=== PATIENT | male | born 1965 | race Hispanic/Latino ===

== ENCOUNTER 2022-08-10 19:12 | Emergency (ER) | payer SELFPAY ==
[~2022-08-10] VITALS: Ht 157.5 cm; Wt 66.0 kg
[2022-08-10] MEDS ORDERED: VOLTAREN75 MG PO (20:11)
[2022-08-10] MEDS ORDERED: TYLENOL # 31 TA1 PO (20:11)
[2022-08-10 20:50] VITALS: BP 129/84
== END 2022-08-10 21:00 | disposition home or self-care (01) | DRG 607 ==
LOC: ED 19:12
DX: R22.41 Localized swelling, mass and lump, right lower limb (principal); I10 Essential (primary) hypertension; E11.9 Type 2 diabetes mellitus without complications

== ENCOUNTER 2022-08-20 12:54 | Emergency (ER) | payer SELFPAY ==
[~2022-08-20] VITALS: Ht 157.5 cm; Wt 63.5 kg
[~2022-08-20 12:54] MED LIST: TYLENOL # 31 TA1 PO; VOLTAREN75 MG PO
[2022-08-20] MEDS ORDERED: TYLENOL # 31 TA1 PO (13:07)
[2022-08-20 13:14] VITALS: BP 151/96
== END 2022-08-20 13:26 | disposition home or self-care (01) | DRG 951 ==
LOC: ED 12:54
DX: Z76.0 Encounter for issue of repeat prescription (principal); R22.41 Localized swelling, mass and lump, right lower limb; I10 Essential (primary) hypertension; E11.9 Type 2 diabetes mellitus without complications

== ENCOUNTER 2022-08-23 12:27 | Emergency (ER) | payer SELFPAY ==
[~2022-08-23] VITALS: Ht 157.5 cm; Wt 61.0 kg
[2022-08-23] MEDS ORDERED: TYLENOL # 31 TA1 PO (13:00)
[2022-08-23] MEDS ORDERED: DICLOFENAC75 MG PO (13:00)
[2022-08-23 13:14] VITALS: BP 120/78
== END 2022-08-23 13:21 | disposition home or self-care (01) | DRG 607 ==
LOC: ED 12:27
DX: R22.41 Localized swelling, mass and lump, right lower limb (principal); I10 Essential (primary) hypertension; E11.9 Type 2 diabetes mellitus without complications

== ENCOUNTER 2022-08-26 18:11 | Emergency (ER) | payer SELFPAY ==
[~2022-08-26] VITALS: Ht 157.5 cm; Wt 65.0 kg
[~2022-08-26 18:11] MED LIST changes: +DICLOFENAC75 MG PO
[2022-08-26 18:42] VITALS: BP 169/107
[2022-08-26] MEDS ORDERED: NAPROXEN500 MG PO (18:47)
[2022-08-26 18:55] VITALS: BP 142/97
== END 2022-08-26 19:07 | disposition home or self-care (01) | DRG 93 ==
LOC: ED 18:11
DX: G89.29 Other chronic pain (principal); R22.41 Localized swelling, mass and lump, right lower limb; I10 Essential (primary) hypertension; E11.9 Type 2 diabetes mellitus without complications